=== PATIENT | male | born 1990 | race Caucasian/White ===

== ENCOUNTER 2017-08-17 18:49 | Emergency (ER) | payer OTHER ==
[~2017-08-17] VITALS: Wt 68.0 kg
[~2017-08-17 18:49] MED LIST: AMOXICILLIN500 M2 PO; AMOXICILLIN500 MG PO; BACTRIM DS 8001 TA1 PO; BACTROBAN CREAM15 GM T; CEPHALEXIN500 M1 PO; CLINDAMYCIN150 MG PO; EES400 MG PO; HYDROCODONE BIT1 T11 PO; OMNICEF300 MG PO; PENICILLIN-VK500 MG PO; PREDNISONE20 M1 PO; TRAMADOL HCL50 MG PO; TRIMOX500 MG PO; TYLENOL325 M1 PO; TYLENOL500 MG; ULTRAM50 MG PO; VICODIN 5/500 505 MG PO
[2017-08-17] MEDS ORDERED: PROAIR HFA8.5 GM INH (19:52)
[2017-08-17] MEDS ORDERED: PREDNISONE20 M1 PO (19:52)
[2017-08-17] MEDS ORDERED: ZITHROMAX250 MG PO (19:52)
== END 2017-08-17 19:55 | disposition home or self-care (01) ==
LOC: ED 18:49
DX: J40 Bronchitis, not specified as acute or chronic (principal); F17.200 Nicotine dependence, unspecified, uncomplicated; Z88.6 Allergy status to analgesic agent; Z79.899 Other long term (current) drug therapy

== ENCOUNTER 2018-12-14 01:35 | Emergency (ER) | payer OTHER ==
[~2018-12-14] VITALS: Ht 177.8 cm; Wt 74.8 kg
[~2018-12-14 01:35] MED LIST changes: +PROAIR HFA8.5 GM INH; +ZITHROMAX250 MG PO
[2018-12-14] MEDS ORDERED: CLINDAMYCIN HC300 MG PO (01:59)
[2018-12-14] MEDS ORDERED: ULTRAM50 MG PO (01:59)
== END 2018-12-14 02:21 | disposition home or self-care (01) ==
LOC: ED 01:35
DX: K04.7 Periapical abscess without sinus (principal); K02.9 Dental caries, unspecified; Z88.6 Allergy status to analgesic agent

== ENCOUNTER 2020-03-14 18:00 | Emergency (ER) | payer OTHER ==
[~2020-03-14] VITALS: Ht 180.3 cm; Wt 81.6 kg
[~2020-03-14 18:00] MED LIST changes: +CLINDAMYCIN HC300 MG PO
== END 2020-03-14 20:16 | disposition left against medical advice (07) ==
LOC: ED 18:00
DX: R07.81 Pleurodynia (principal); Z88.8 Allergy status to other drugs, medicaments and biological substances; Z79.899 Other long term (current) drug therapy

== ENCOUNTER 2020-05-11 19:22 | Emergency (ER) | payer OTHER ==
[~2020-05-11] VITALS: Ht 180.3 cm; Wt 77.1 kg
[2020-05-11] MEDS ORDERED: DOXYCYCLINE100 M3 PO (20:58)
== END 2020-05-11 21:15 | disposition home or self-care (01) ==
LOC: ED 19:22
DX: L08.9 Local infection of the skin and subcutaneous tissue, unspecified (principal); Z88.6 Allergy status to analgesic agent

== ENCOUNTER 2021-05-25 19:41 | Emergency (ER) | payer OTHER ==
[~2021-05-25] VITALS: Ht 177.8 cm; Wt 81.6 kg
[~2021-05-25 19:41] MED LIST changes: +DOXYCYCLINE100 M3 PO
[2021-05-25] MEDS ORDERED: PENICILLIN VK500 MG PO (20:00)
== END 2021-05-25 20:16 | disposition home or self-care (01) ==
LOC: ED 19:41
DX: K04.7 Periapical abscess without sinus (principal)

== ENCOUNTER 2021-12-09 09:43 | Emergency (ER) | payer OTHER ==
[~2021-12-09] VITALS: Wt 81.6 kg
[~2021-12-09 09:43] MED LIST changes: +PENICILLIN VK500 MG PO
[2021-12-09] MEDS ORDERED: CYCLOBENZAPRINE10 MG PO (10:53)
[2021-12-09] MEDS ORDERED: PREDNISONE50 MG PO (10:53)
== END 2021-12-09 11:15 | disposition home or self-care (01) ==
LOC: ED 09:43
DX: S39.012A Strain of muscle, fascia and tendon of lower back, initial encounter (principal); Z79.2 Long term (current) use of antibiotics; Z88.6 Allergy status to analgesic agent; X50.1XXA Overexertion from prolonged static or awkward postures, initial encounter; Y93.89 Activity, other specified; Y92.89 Other specified places as the place of occurrence of the external cause; Y99.9 Unspecified external cause status